=== PATIENT | male | born 1970 | race American Indian/Alaskan Native ===

== ENCOUNTER 2022-02-08 03:00 | Emergency (ER) | payer SELFPAY ==
[2022-02-08 03:10] VITALS: BP 196/113
[2022-02-08 11:02] LABS: Hematocrit 39.4 % (35.5-45.6); Hemoglobin 12.8 gm/dl (11.8-15.2); Mean Corpuscular HGB Conc 32 % (32-34); Mean Corpuscular Volume 86 fl (84-94); Platelet Count 211 K/mm3 (140-440); Red Blood Count 4.59 M/mm3 (3.65-5.03); Red Cell Distribution Width 15.2 % (13.2-15.2)
[2022-02-08 11:55] LABS: Alanine Aminotransferase 7 units/L (7-56); Albumin 3.5 g/dL (3.9-5); BUN/Creatinine Ratio 9; Blood Urea Nitrogen 7 mg/dL (9-20); Calcium 9.3 mg/dL (8.4-10.2); Hemolysis Index 52
[2022-02-08 14:31] LABS: Bilirubin,Urine NEG (Negative); Blood,Urine SM (Negative); Color,Urine Straw (Yellow); Protein,Urine <15 mg/dL mg/dL (Negative); Urobilinogen,Urine < 2.0 mg/dL (<2.0)
[2022-02-08] MEDS ORDERED: cloNIDine 0.2 MG TAB PO STA (16:51)
--- NOTE | 2022-02-10 15:11 | Electrocardiograph Report ---
[facility] Test Date: 2022-02-08 Test Time: 10:30:24 Pat Name: ANABELLE GONZALEZ Department: Room: Gender: M [employer]visor: GALILEA : 1970 Requested By: MAHOGANY RICHARD Order Number: [id number] Reading MD: Scar Madrid Measurements Intervals Petty Rate: 69 P: 75 TX: 134 QRS: 60 QRSD: 89 T: 55 QT: 399 QTc: 426 Interpretive Statements Sinus rhythm No previous ECG available for comparison Electronically Signed On 02-10-2022 15:11:13 EDT by Scar Madrid
== END 2022-02-08 18:22 ==
LOC: ED 03:00
DX: R10.9 Unspecified abdominal pain (principal); Z53.21 Procedure and treatment not carried out due to patient leaving prior to being seen by health care provider
CPT/HCPCS: 36415; 80053; 81001; 83690; 84484; 85027; 93005

== ENCOUNTER 2022-03-10 11:13 | Emergency (ER) | payer SELFPAY ==
[2022-03-10 11:36] VITALS: BP 122/76
--- NOTE | 2022-03-10 11:42 | Emergency Department Report ---
Chief Complaint: Medical Clearance Stated Complaint: HOMELESS Time Seen by Provider: 03/10/22 11:41 - HPI History of Present Illness: PRESENTS TO ER BECAUSE HE FELT FUNNY LAST NIGHT DENIES ANY SYMPTOMS ON MSE IN TRIAGE AMBULATORY EATING AND DRINKING WITH DIFFICULTY HOMELESS - ROS Review of Systems: NONE - Exam Vital Signs: Vital Signs 03/10/22 11:35 Temperature 98.7 F Pulse Rate 78 Respiratory 20 Rate Blood Pressure 122/76 [Right] O2 Sat by Pulse 96 Oximetry Physical Exam: Vital Signs 03/10/22 11:35 Temperature 98.7 F Pulse Rate 78 Respiratory 20 Rate Blood Pressure 122/76 [Right] O2 Sat by Pulse 96 Oximetry ALERT/ORIENTED AMBULATORY ANSWERING QUESTIONS COOPERATIVE ALERT/ORIENTED UNKEPT TAKING PO NO HI NO SI NORMAL VAS DENIES CP OR SOB MSE screening note: Focused history and physical exam performed. Due to findings the following was ordered: NO COMPLAINTS MSE FROM ER SEE NURSING NOTES ED Disposition for MSE Clinical Impression: Homeless Disposition: 07 LEFT WITHOUT BEING SEEN Is pt being admited?: No Does the pt Need Aspirin: No Condition: Stable Time of Disposition: 11:56
== END 2022-03-11 13:40 | disposition left against medical advice (07) ==
LOC: ED 11:13
DX: Z00.00 Encounter for general adult medical examination without abnormal findings (principal); Z53.21 Procedure and treatment not carried out due to patient leaving prior to being seen by health care provider; Z59.00 Homelessness unspecified

== ENCOUNTER 2022-03-23 14:40 | Emergency (ER) | payer SELFPAY ==
[2022-03-23] MEDS ORDERED: SODIUM CHLORIDE 0.9% 1000 ML 1,000 ML IV ONE (15:46)
--- NOTE | 2022-03-23 15:51 | Emergency Department Report ---
ED General Adult HPI - General Stated complaint: ALTERED MENTAL PUI?: No Time Seen by Provider: 03/23/22 15:30 Source: RN/MD, EMS Mode of arrival: Stretcher Limitations: No Limitations - History of Present Illness Initial comments: This is a 52-year-old male who appears to be homeless was brought in because patient was found on the curve at [facility]. Looking through patient's medical history he has a medical history of hypertension. At the time my evaluation patient is not talking to me with a nurse however patient does response to pain. Patient offers no review of system and no history of present illness. No baseline. Patient's airway is intact and no labored breathing. - Related Data Previous Rx's Medication Instructions Recorded Last Taken Type Cyclobenzaprine [Flexeril] 10 mg PO Q8H PRN #21 tablet 12/14/13 Unknown Rx traMADoL [Ultram 50 MG tab] 50 mg PO Q6HR PRN #25 tablet 12/14/13 Unknown Rx Ibuprofen [Motrin] 600 mg PO Q8H PRN #60 tablet 03/23/14 Unknown Rx Ondansetron [Zofran] 4 mg PO Q6HR PRN #20 tablet 03/23/14 Unknown Rx lisinopriL [Zestril TAB] 10 mg PO QDAY #60 tablet 03/23/14 Unknown Rx traMADoL [Ultram] 50 mg PO Q6HR PRN #5 tablet 03/23/14 Unknown Rx Allergies Allergy/AdvReac Type Severity Reaction Status Date / Time No Known Allergies Allergy Verified 03/23/22 15:01 ED Review of Systems ROS: Stated complaint: ALTERED MENTAL Other details as noted in HPI Comment: Unobtainable due to pts medical conditions ED Past Medical Hx - Past Medical History Previous Medical History?: Yes Hx Hypertension: Yes Additional medical history: unsure - Surgical History Additional Surgical History: refuse to answer - Social History Smoking Status: Never Smoker Substance Use Type: None - Medications Home Medications: Home Medications Medication Instructions Recorded Confirmed Last Taken Type Cyclobenzaprine [Flexeril] 10 mg PO Q8H PRN #21 tablet 12/14/13 Unknown Rx traMADoL [Ultram 50 MG tab] 50 mg PO Q6HR PRN #25 tablet 12/14/13 Unknown Rx Ibuprofen [Motrin] 600 mg PO Q8H PRN #60 tablet 03/23/14 Unknown Rx Ondansetron [Zofran] 4 mg PO Q6HR PRN #20 tablet 03/23/14 Unknown Rx lisinopriL [Zestril TAB] 10 mg PO QDAY #60 tablet 03/23/14 Unknown Rx traMADoL [Ultram] 50 mg PO Q6HR PRN #5 tablet 03/23/14 Unknown Rx ED Physical Exam - General Limitations: Altered Mental Status General appearance: alert, in no apparent distress - Head Head exam: Present: atraumatic, normocephalic, normal inspection - Eye Eye exam: Present: normal appearance, PERRL, EOMI Pupils: Present: normal accommodation - ENT ENT exam: Present: normal exam, mucous membranes dry - Neck Neck exam: Present: normal inspection, full ROM - Respiratory Respiratory exam: Present: normal lung sounds bilaterally - Cardiovascular Cardiovascular Exam: Present: regular rate, normal rhythm, normal heart sounds - GI/Abdominal GI/Abdominal exam: Present: soft, normal bowel sounds. Absent: distended, te nderness, guarding, rebound, rigid - Extremities Exam Extremities exam: Present: normal inspection, normal capillary refill - Back Exam Back exam: Present: normal inspection - Neurological Exam Neurological exam: Present: altered, CN II-XII intact ED Course Vital Signs 03/23/22 03/23/22 03/23/22 14:56 19:43 19:45 Temperature 99 F Pulse Rate 97 H 67 Respiratory 18 19 Rate Blood Pressure 148/100 Blood Pressure 140/82 [Left] O2 Sat by Pulse 97 97 96 Oximetry - Reevaluation(s) Reevaluation #1: 03/23/22 20:26 LABS AND IMAGES ARE UNREMARKABLE BUT ONLY THE FOLLOWING: PARENCHYMAL VOLUME LOSS AND MICROVASCUALR ISCHEMIC CHANGES ARE NOTED IN EXCESS OF THOSE EXPETED FO THE PATIENT'S AGE 52 YEARS. 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 I HAVE REEVALUATED THE PATIENT AND PATIENT APPEARS TO BE MORE AWAKE; FOLLOWS COMMAND (OPEN EYES, OPEN MOUTH, SQUEEZE BOTH HANDS). I ASKED IF HE IS TIRED, AND PATIENT NODE HIS HEAD. I WILL GIVE ADDITIONAL 2L OF FLUID. 03/23/22 23:11 REEVALUATION AFTER 2L; PATIENT SIGNIFICANTLY IMPROVE AND ALERT. WILL D/C ED Medical Decision Making - Lab Data Result diagrams: 03/23/22 16:10 08/27/22 16:10 Critical care attestation.: If time is entered above; I have spent that time in minutes in the direct care of this critically ill patient, excluding procedure time. ED Disposition Clinical Impression: Hypokalemia, Weakness Disposition: 01 HOME / SELF CARE / HOMELESS Is pt being admited?: No Does the pt Need Aspirin: No Condition: Stable Instructions: Weakness, [id number] Referrals: JOSEF VELAZQUEZ MD [Primary Care Provider] - 3-5 Days Time of Disposition: 23:12
--- NOTE | 2022-03-23 16:16 | XRay Report ---
CHEST 1 VIEW 03/23/2022 3:06 PM INDICATION / CLINICAL INFORMATION: AMS. COMPARISON: None available. FINDINGS: SUPPORT DEVICES: None. HEART / MEDIASTINUM: No significant abnormality. LUNGS / PLEURA: No significant pulmonary or pleural abnormality. No pneumothorax. ADDITIONAL FINDINGS: No significant additional findings. IMPRESSION: No acute abnormality. Signer Name: Spencer Chakraborty MD Signed: 03/23/2022 4:12 PM Workstation Name: [id number]
[2022-03-23 16:36] LABS: Hematocrit 28.6 % (35.5-45.6); Hemoglobin 9.3 gm/dl (11.8-15.2); Mean Corpuscular HGB Conc 33 % (32-34); Mean Corpuscular Volume 85 fl (84-94); Platelet Count 200 K/mm3 (140-440); Red Blood Count 3.35 M/mm3 (3.65-5.03); Red Cell Distribution Width 15.1 % (13.2-15.2)
[2022-03-23 16:58] LABS: Alanine Aminotransferase 17 units/L (7-56); Albumin 3.1 g/dL (3.9-5); BUN/Creatinine Ratio 11; Blood Urea Nitrogen 9 mg/dL (9-20); Hemolysis Index 9
--- NOTE | 2022-03-23 18:30 | Cat Scan Report ---
CT HEAD WITHOUT CONTRAST INDICATION / CLINICAL INFORMATION: AMS. TECHNIQUE: All CT scans at this location are performed using CT dose reduction for ALARA by means of automated e xposure control. COMPARISON: None available. FINDINGS: HEMORRHAGE: No evidence of intracranial hemorrhage or extra-axial fluid collection. EXTRA-AXIAL SPACES: Cortical sulci and sylvian fissures are enlarged reflecting a degree of parenchym al volume loss which is greater than expected for the patient's age of 52 years.. Basilar cisterns byrd ve an unremarkable appearance. VENTRICULAR SYSTEM: The third and lateral ventricles are enlarged reflecting presence of moderate par enchymal volume loss which is greater than expected for age. Parenchymal volume loss. CEREBRAL PARENCHYMA: Periventricular and deep white matter lucency is observed. This is probably seco ndary to microvascular ischemic change. There is no indication of recent infarction. A remote small d eep infarction is present near the genu of the left internal capsule. Smaller deep infarction is pres ent on the right. MIDLINE SHIFT OR HERNIATION: There is no mass effect. CEREBELLUM / BRAINSTEM: Brainstem has an unremarkable appearance. Age related cerebellar atrophy is n oted. MIDLINE STRUCTURES:Pituitary gland has an unremarkable appearance. No abnormalities are seen in the p ineal region. INTRACRANIAL VESSELS:Calcified atherosclerotic plaque is present along the course of the cavernous se gments of both internal carotid arteries. Similar findings are seen at the distal vertebral arteries. CRANIOCERVICAL JUNCTION:No significant abnormality. ORBITS: visualized portions of the orbits have an unremarkable appearance. SOFT TISSUES of HEAD: No significant abnormality. CALVARIUM: Evaluation of bone windows reveals no abnormalities. PARANASAL SINUSES / MASTOID AIR CELLS: Paranasal sinuses are free from inflammatory mucosal disease. Mastoid air cells are normally pneumatized. ADDITIONAL FINDINGS: None. IMPRESSION: 1. Parenchymal volume loss and microvascular ischemic changes are noted in excess of those expected f or the patient's age 52 years. 2. Bilateral remote small deep infarctions are identified. 3. No indication of acute intracranial abnormality is identified. Signer Name: Sagar Dunn MD Signed: 03/23/2022 6:26 PM Workstation Name: [id number]
[2022-03-23 20:15] LABS: Bacteria,Urine 1+ /HPF (Negative); Mucus,Urine FEW /HPF; Sperm,Urine FEW /HPF (NP)
[2022-03-23 20:17] LABS: Color,Urine Yellow (Yellow)
[2022-03-23] MEDS ORDERED: LACTATED RINGERS 2,000 ML IV ONE (20:24)
[2022-03-24 00:38] VITALS: BP 159/85
== END 2022-03-24 00:03 | disposition home or self-care (01) ==
LOC: ED 14:40
DX: E87.6 Hypokalemia (principal); R53.1 Weakness; I10 Essential (primary) hypertension
CPT/HCPCS: 36415; 70450; 71045; 80053; 81001; 82962; 83735; 85027; 96360; 96361; 99285; J7030; J7120